=== PATIENT | male | born 1990 | race Hispanic/Latino ===

== ENCOUNTER 2017-09-20 22:00 | Emergency (ER) | payer BC, OTHER ==
[2017-09-20] MEDS ORDERED: Fluorescein Opthalmic Strip ONE (22:19)
[2017-09-20] MEDS ORDERED: Proparacaine 0.5% Opth 15 ML BOT ONE (22:19)
== END 2017-09-20 22:38 | disposition home or self-care (01) ==
LOC: SCSER 22:00
DX: T15.02XA Foreign body in cornea, left eye, initial encounter (principal); W22.8XXA Striking against or struck by other objects, initial encounter; Y93.89 Activity, other specified; Y99.0 Civilian activity done for income or pay
CPT/HCPCS: 65210